=== PATIENT | female | born 1955 | race Caucasian/White ===

== ENCOUNTER → 2019-05-18 | Outpatient (REF) | payer BC ==
[~2019-05-18] MED LIST: AMOX500C PO; AMOX500T PO; ASPI81TAEC PO; CALC600T31 PO; COLA100C5 PO; FLUT50SP12; GABA-843 PO; LEVO100T5 PO; LISI-538 PO; MELO15TA28 PO; MULT1TAB8 PO; TYLE1TAB5 PO; TYLE650T25 PO; VITA500046 PO
== END ==
LOC: M LAB REF 10:02
PROVIDERS: ATTEND Nurse Practitioner Family
DX: N39.0 Urinary tract infection, site not specified (principal)

== ENCOUNTER → 2021-07-29 | Outpatient (CLI) | payer BC, OTHER ==
[~2021-07-29] MED LIST changes: +ACET-1349 PO; +ACET650T61 PO; +ASPI-569 PO; -ASPI81TAEC PO; +AZEL0.055 NARES; +CALC1TAB61 PO; +D-101000 PO; +FLON1SPR; +GABA-282 PO; -GABA-843 PO; -LISI-538 PO; +LISI20TA33 PO
== END ==
LOC: M LABSMTC 10:58
PROVIDERS: ATTEND Anesthesiology
DX: Z01.818 Encounter for other preprocedural examination (principal); Z11.52 Encounter for screening for COVID-19

== ENCOUNTER 2021-08-02 09:07 | Day surgery (SDC) | payer OTHER ==
[~2021-08-02] VITALS: Ht 162.6 cm; Wt 67.1 kg
[~2021-08-02 09:07] MED LIST changes: +LIDOCAINE 2% 100MG/5ML SDV (FOR ANES.) As Ordered ONE; +NS 1,000 ML IV ONE; +propofoL 200 MG/20 ML VIAL As Ordered ONE
[2021-08-02 11:48] VITALS: BP 105/58
== END 2021-08-02 12:04 | disposition home or self-care (01) ==
LOC: M OPP 09:07
PROVIDERS: ATTEND Internal Medicine Gastroenterology
DX: Z12.11 Encounter for screening for malignant neoplasm of colon (principal); Z86.010 Personal history of colon polyps; K64.8 Other hemorrhoids; E03.9 Hypothyroidism, unspecified; Z79.1 Long term (current) use of non-steroidal anti-inflammatories (NSAID); Z79.2 Long term (current) use of antibiotics; Z79.82 Long term (current) use of aspirin; Z79.899 Other long term (current) drug therapy; Z88.8 Allergy status to other drugs, medicaments and biological substances; Z80.1 Family history of malignant neoplasm of trachea, bronchus and lung

== ENCOUNTER → 2022-11-21 | Outpatient (REF) | payer OTHER ==
[~2022-11-21] MED LIST changes: -LIDOCAINE 2% 100MG/5ML SDV (FOR ANES.) As Ordered ONE; -NS 1,000 ML IV ONE; -propofoL 200 MG/20 ML VIAL As Ordered ONE
== END ==
LOC: M LAB REF 12:00 → EEVIPCON 12:00
PROVIDERS: ATTEND Nurse Practitioner Family
DX: L03.319 Cellulitis of trunk, unspecified (principal)

== ENCOUNTER → 2024-09-12 | Outpatient (REF) | payer OTHER ==
[~2024-09-12] MED LIST changes: -AZEL0.055 NARES; +AZEL1SPR4 NARES; +GABA-1172 PO; -GABA-282 PO
[2024-09-17 01:37] LABS: CK 1 (BB) None Detected (None Detected); CK 2 (MB) 2 % (<5); CK 3 (MM) 95 % (95-100); CK TOTAL 289 U/L (18-225); COMMENT FOR CK ISOENZYME MACRO CK TYPE 1
== END ==
LOC: M LAB REF 09:58
PROVIDERS: ATTEND Internal Medicine
DX: R74.8 Abnormal levels of other serum enzymes (principal)